=== PATIENT | male | born 1980 | race Caucasian/White ===

== ENCOUNTER → 2018-09-11 15:45 | Outpatient (CLI) | payer BC, SELFPAY | PROVIDERS: Referring Provider Otolaryngology Otolaryngology/Facial Plastic Surgery; Visit Provider Otolaryngology Otolaryngology/Facial Plastic Surgery | DX: J02.9 Acute pharyngitis, unspecified (principal) | CPT/HCPCS: 87070 ==

== ENCOUNTER → 2018-11-06 07:43 | Outpatient (CLI) | payer BC, SELFPAY ==
--- NOTE | 2018-11-06 08:25 | RAD_ITS ---
STUDY: X-RAY - ESOPHAGUS (BARIUM SWALLOW) WITH FLUOROSCOPY REASON FOR EXAM: Male, 38 years old. 1 month history of dysphagia. Recent diagnosis of strep throat TECHNIQUE: 12 view(s) of the esophagus were obtained following swallowing of barium. FLUOROSCOPY TIME (if supplied): (0:18) minutes/seconds COMPARISON: None. FINDINGS: There is no demonstrated esophageal foreign body. There is no demonstrated stricture or mucosal abnormality. Normal gastroesophageal junction, without a demonstrated hiatal hernia. The patient ingested a 12 mm tablet of barium without any difficulty. Normal visualized aortic arch and descending thoracic aorta. Normal visualized pulmonary parenchyma. Normal visualized osseous structures of the thorax. RAD/Esophagus Only IMPRESSION: Normal plain film x-ray examination (barium swallow) of the esophagus. Electronically Signed: Anthony Arevalo, at 9:55 EDT , Service support ,
== END ==
PROVIDERS: Family Provider Family Medicine; PCP Family Medicine; Referring Provider Otolaryngology Otolaryngology/Facial Plastic Surgery; Visit Provider Otolaryngology Otolaryngology/Facial Plastic Surgery
DX: R13.10 Dysphagia, unspecified (principal)
CPT/HCPCS: 74220

== ENCOUNTER → 2020-11-16 13:26 | Outpatient (CLI) | payer BC, SELFPAY ==
[2020-11-16 13:46] LABS: Lipase 106 U/L (73-393)
== END ==
PROVIDERS: PCP Family Medicine; Referring Provider Physician Assistant; Visit Provider Physician Assistant
DX: R10.11 Right upper quadrant pain (principal)
CPT/HCPCS: 83690

== ENCOUNTER 2022-06-20 02:41 | Emergency (ER) | payer BC, SELFPAY ==
[2022-06-20 02:41] VITALS: BP 147/103; PULSE 108; RESP 15; TEMP 36.7; O2SAT 99
--- NOTE | 2022-06-20 03:00 | RAD_ITS ---
STUDY: X-RAY - LUMBAR SPINE REASON FOR EXAM: Male, 42 years old. pain/injury TECHNIQUE: 2 view(s) of the lumbar spine were obtained. COMPARISON: None FINDINGS: Normal lumbar lordosis. There is no substantial scoliosis. There is a normal alignment of the vertebrae. Normal vertebral bodies. Minimal marginal osteophytes at several levels. Normal disc space heights. The soft tissue structures are unremarkable. RAD/Lumbar Spine 2 or 3 Views IMPRESSION: Minimal degenerative changes. No fracture identified. Electronically Signed: Kosta Ordaz MD at 4:03 EST Reading Location ID and State: [id number] / , Service support ,
--- NOTE | 2022-06-20 03:00 | EDS_ITS ---
HPI History of Present Illness Chief Complaint: Back Informant: patient Onset/Context/Timing Onset: Hours (4-5) Context: Sudden Onset Injury: bending (exercising core w/ 5-lb dumbbells in hands) Timing: Continuous Quality: Aching Location: Lumbar Current Severity: Severe Maximum Severity: Severe Worsened by: improves with Movement Relieved by: Remaining Still Associated Symptoms Associated Symptoms: Tingling (Both feet) Narrative Narrative: Patient states he was doing exercises and had sudden onset of his back feeling like it locked up and in pain. He went to sit down and then felt some cracking in his back and the pain got worse. He did not have any radiation into his legs at any of this time but now he is here in the ED, standing up and not wanting to move because of severe muscle spasms and pain, and he states right now he is feeling some tingling in both feet. He did not have loss of bowel or bladder control but states when he went to urinate initially it was hard to get it started. States he has had this happen before but it was a long time ago. Does not have any chronic back issues or history of back surgery. [facility] Medical History Pneumothorax Home Medications cyclobenzaprine 10 mg tablet 10 mg PO TID PRN Muscle Spasm #20 TABLETS 06/20/22 [Rx Last Taken Unknown] naproxen 500 mg tablet 500 mg PO BID #14 tabs 06/20/22 [Rx Last Taken Unknown] tramadol 50 mg tablet 50 mg PO Q6H PRN pain 3 days #10 tabs 06/20/22 [Rx Last Taken Unknown] Allergy/AdvReac Type Severity Reaction Status Date / Time Penicillins AdvReac Vomiting Verified 06/20/22 02:44 Social History Smoking Status: Unknown if ever smoked ROS ROS ED Constitutional Constitutional ED: Denies chills or fever(s) Gastrointestinal Gastrointestinal: Denies abdominal pain, constipation, fecal incontinence, nausea or vomiting Genitourinary Genitourinary ED: Reports other Details: no urinary retention ; Denies abdominal discomfort or urinary incontinence Musculoskeletal Musculoskeletal: Reports as per HPI and back pain; Denies neck pain Integumentary Denies rash or wounds Neurologic Neurologic: Denies headache(s), paresthesias or weakness EXAM Physical Exam Const Vital Signs: 06/20/22 02:41 Temperature 98.0 F Temperature Source Oral Pulse Rate 108 H Respiratory Rate 15 Blood Pressure 147/103 H Blood Pressure Mean 117 Pulse Ox 99 Oxygen Delivery Method Room Air Positive well nourished and well developed General Appearance ED: well developed and NAD HEENT Negative for trauma or tenderness Eyes PERRL and EOMs intact bilaterally Neck full ROM and supple GI normal to inspection, nondistended, normoactive bowel sounds, soft to palpation and non-tender Back/Spine normal to inspection Back/Spine Narrative: Initially not able to perform straight leg raises due to patient standing and not wanting to move. Later straight leg raise is negative. Lumbar Spine / Lower Back: ROM limited and paraspinal muscle tenderness; Negative for lumbar spinal tenderness Extremity normal to inspection, full ROM and no pedal edema Neuro oriented x3 and no sensory deficits noted Sensorium / Orientation: alert Motor Exam: strength 5/5 throughout Psych mental status grossly normal and thought process normal Skin no rashes or lesions noted and no wounds MDM MDM MDM Narrative Medical decision making narrative: Treated patient with morphine, Toradol, Norflex, much better on reevaluation, standing casually using his cell phone and appears comfortable. X-ray lumbar spine 3 view on my interpretation negative for any acute bony fracture or subluxation. Radiology in agreement. Reassured this is probably all myofascial, given some prescriptions, supportive care advised and close outpatient follow-up as needed he is comfortable with that plan. Radiography Diagnostic Testing: Clinical Impression(s) from Imaging Studies Lumbar Spine X-Ray 06/20/22 03:00 IMPRESSION: Minimal degenerative changes. No fracture identified. Electronically Signed: Kosta Ordaz MD at 4:03 EST Reading Location ID and State: [id number] / , Service support , Discharge Plan Triage Chief Complaint: Back ED Provider: Sixto Ackerman Dx/Rx/DC Orders Clinical Impression: Acute lumbosacral myofascial strain Instructions: ED Back Sprain/Strain Prescriptions: New cyclobenzaprine [cyclobenzaprine] 10 MG tablet 10 mg PO TID PRN (Reason: Muscle Spasm) Qty: 20 0RF tramadol 50 MG tablet 50 mg PO Q6H PRN (Reason: pain) 3 Days Qty: 10 0RF naproxen 500 MG tablet 500 mg PO BID Qty: 14 0RF Stand Alone Forms: ED Work / School Excuse Primary Care Provider: Brandt Dalton Referrals: Brandt Dalton MD [Primary Care Provider] - 1 Week if not improving Disposition Disposition: Home, Self Care
[2022-06-20] MEDS: Ketorolac 60 MG/2 ML Vial IM (03:15)
[2022-06-20] MEDS: Orphenadrine 60 MG/2 ML Ampul IM (03:17)
[2022-06-20] MEDS: Morphine 4 MG/ML Syringe IM (03:18)
[2022-06-20 05:09] VITALS: PULSE 108; RESP 15; O2SAT 99
== END 2022-06-20 05:10 | disposition home or self-care (01) ==
PROVIDERS: Emergency Provider Emergency Medicine; PCP Family Medicine; Visit Provider Emergency Medicine
DX: S39.012A Strain of muscle, fascia and tendon of lower back, initial encounter (principal); X50.1XXA Overexertion from prolonged static or awkward postures, initial encounter; Y93.B9 Activity, other involving muscle strengthening exercises
CPT/HCPCS: 72100; 96372; 99282

== ENCOUNTER 2023-04-02 03:40 | Emergency (ER) | payer BC, SELFPAY ==
[2023-04-02 03:42] VITALS: PULSE 71; RESP 18; TEMP 36; O2SAT 99; BMI 23.8
[2023-04-02 03:44] VITALS: BP 170/94
--- NOTE | 2023-04-02 03:53 | EDS_ITS ---
HPI History of Present Illness Chief Complaint: Numb/Ting Informant: patient Narrative Narrative: Presents to ED from work for stating left arm falling asleep and half hour prior to arrival. He just finished lunch he was standing at work on his computer. No headache or speech changes. No chest pains. He states he has been noticed some neck discomfort left lower neck over the last couple days. He is left-handed. No neck trauma. Denies any weakness in the extremities. Denies any past medical history. Denies any previous similar symptoms in the past. Prior similar symptoms: No PFSH PFSH Medical History Pneumothorax Allergy/AdvReac Type Severity Reaction Status Date / Time Penicillins AdvReac Vomiting Verified 04/02/23 03:44 Social History Smoking Status: Unknown if ever smoked ROS ROS ED Constitutional Constitutional ED: Denies chills, fever(s) or sweats Eyes Eyes: Denies change in vision ENT ENT ED: Denies dysphagia or sore throat Cardiovascular Cardiovascular: Denies chest pain, leg edema, palpitations or racing heartbeat Respiratory/Chest Respiratory/Chest: Denies cough, dyspnea or dyspnea on exertion Gastrointestinal Gastrointestinal: Denies abdominal pain, diarrhea, nausea or vomiting Genitourinary Genitourinary ED: Denies dysuria, hematuria or urinary frequency Musculoskeletal Musculoskeletal: Reports neck pain; Denies back pain or extremity pain Integumentary Denies rash or wounds Neurologic Neurologic: Reports paresthesias; Denies headache(s) or weakness EXAM Physical Exam Const Vital Signs: 04/02/23 03:42 04/02/23 03:44 Temperature 96.8 F L Temperature Source Temporal Pulse Rate 71 Respiratory Rate 18 Blood Pressure 170/94 H Blood Pressure Mean 119 Pulse Ox 99 Oxygen Delivery Method Room Air Positive well nourished and well developed General Appearance ED: well developed and NAD HEENT Reports moist mucous membranes normocephalic and atraumatic Eyes PERRL, EOMs intact bilaterally and conjunctivae normal General Eye ED: Yes normal appearance of both eyes Neck no lymphadenopathy and supple Neck Narrative: Positive Spurling's to the left with reproducible symptoms. Symptoms improved with sidebending rotation to the right. General: Negative for tenderness Chest Wall inspection of chest normal and palpation of chest normal Chest: Negative for tenderness Resp normal respiratory effort and normal air movement Effort and Inspection: symmetric chest movement; Negative for respiratory distress Cardio regular rate, regular rhythm and no murmurs Peripheral Pulses: pulses 2+ throughout GI normal to inspection, nondistended, normoactive bowel sounds and non-tender Palpation: Negative for guarding or rebound tenderness present Back/Spine no CVA tenderness and no thoracic nor lumbar tenderness Extremity normal to inspection General Extremety ED: Negative for edema or tenderness General Extremity: Negative for edema Neuro oriented x3 and CN's II-XII intact bilaterally Neuro Narrative: NIH 0. Cerebellar upper and lower intact and equal. Upper extremity strength 5 out of 5 shoulder flexors elbow flexor extension, hand field marketing lead and abduction. Pulses are intact distally. Subjective numbness in the left hand C6-C8 compared to the right. Normal sensation in the forearm and upper arm. Sensorium / Orientation: awake and alert Skin no rashes or lesions noted and no wounds MDM MDM MDM Narrative Medical decision making narrative: Interventions / MDM: Differential diagnosis: Cervical radiculopathy Diagnosis considered but do not suspect: ACS, EKG no ischemic findings, no chest symptoms. CVA, however reproducible radicular symptoms. My EKG interpretation: Sinus rate of 81, no ST or T wave changes. QTc 492. Imaging independently reviewed and interpreted by myself: Cervical x-ray 3 views: Mild degenerative changes noted. External documents reviewed: N/A Test considered but not ordered:N/A ED course: Patient reproducible pain with Spurling's test relieved with flexion sidebending to the right. EKG per protocol obtained and negative. Cervical films ordered further evaluation. 0500: Final read per radiology also confirms degenerative changes. Reevaluation symptoms resolved. Patient has no weakness. Discussed cervical radiculopathy. With improved symptoms, will hold off on any neuropathic medications. He will monitor symptoms and follow-up with his PCP for further evaluation treatment or testing as needed. All questions were answered. Re-evaluation: stable Disposition discussed with patient/family/significant other: Patient Case discussed with consulting clinician: N/A This note was generated with [employer] dictation software. It may contain incorrect words, spelling, and punctuation that were not noted in checking the note before signing. Radiography Diagnostic Testing: Clinical Impression(s) from Imaging Studies Cervical Spine X-Ray 04/02/23 04:00 IMPRESSION: Mild degenerative changes with no acute abnormality. Electronically Signed: Jules CookDO at 5:08 EST , Discharge Plan Triage Chief Complaint: Numb/Ting ED Provider: Ryan Velasquez Dx/Rx/DC Orders Clinical Impression: Cervical radiculopathy, Numbness of left hand Instructions: Radiculopathy Cervical Stand Alone Forms: ED Work / School Excuse Primary Care Provider: Brandt Dalton Referrals: Brandt Dalton MD [Primary Care Provider] - 3-5 Days Activity Restrictions/Additional Instructions: Your history and exam consistent with cervical radiculopathy with reproducible symptoms with Spurling's test. If symptoms return, position head as shown to the opposite side to help with symptoms. Follow-up with your doctor for outpatient evaluation. Disposition Disposition: Home, Self Care
--- NOTE | 2023-04-02 04:00 | RAD_ITS ---
INDICATION: pain -- left radiculopathy EXAMINATION/TECHNIQUE: X-RAY - XR Spine Cervical 2 or 3 Views COMPARISON: None. FINDINGS: VERTEBRAE: No fracture or subluxation. Mild degenerative changes. Disc space narrowing at C3-C4, C5-C6 and C6-C7 may represent degenerative disc disease. No erosive changes. PREVERTEBRAL SOFT TISSUES: Unremarkable. LUNG APICES: Visualized portions unremarkable. RAD/Cerv Spine 2 or 3 Views IMPRESSION: Mild degenerative changes with no acute abnormality. Electronically Signed: Jules Cook DO at 5:08 EST ,
[2023-04-02 05:13] VITALS: BP 146/78; PULSE 18; O2SAT 99
== END 2023-04-02 05:17 | disposition home or self-care (01) ==
PROVIDERS: Emergency Provider Emergency Medicine; PCP Family Medicine; Visit Provider Emergency Medicine
DX: M54.12 Radiculopathy, cervical region (principal); R20.0 Anesthesia of skin
CPT/HCPCS: 72040; 93005; 99282